=== PATIENT | female | born 1935 | race Caucasian/White ===

== ENCOUNTER → 2018-06-09 09:11 | Outpatient (CLI) | payer MEDICARE, OTHER, SELFPAY ==
[2018-06-09 10:21] LABS: INR 1.9 (0.9-1.3); Prothrombin Time 20.7 SECONDS (10.1-12.7)
== END ==
PROVIDERS: Visit Provider Pharmacist
DX: Z51.81 Encounter for therapeutic drug level monitoring (principal); Z79.01 Long term (current) use of anticoagulants; I48.91 Unspecified atrial fibrillation
CPT/HCPCS: 36415; 85610

== ENCOUNTER → 2018-06-16 09:10 | Outpatient (CLI) | payer MEDICARE, OTHER, SELFPAY ==
[2018-06-16 10:28] LABS: INR 2.6 (0.9-1.3); Prothrombin Time 28.7 SECONDS (10.1-12.7)
== END ==
PROVIDERS: Visit Provider Pharmacist
DX: Z51.81 Encounter for therapeutic drug level monitoring (principal); Z79.01 Long term (current) use of anticoagulants; I48.91 Unspecified atrial fibrillation
CPT/HCPCS: 36415; 85610

== ENCOUNTER → 2018-06-30 15:58 | Outpatient (CLI) | payer MEDICARE, OTHER, SELFPAY ==
[2018-06-30 16:28] LABS: INR 2.6 (0.9-1.3); Prothrombin Time 28.6 SECONDS (10.1-12.7)
== END ==
PROVIDERS: Visit Provider Pharmacist
DX: Z51.81 Encounter for therapeutic drug level monitoring (principal); Z79.01 Long term (current) use of anticoagulants; I48.91 Unspecified atrial fibrillation
CPT/HCPCS: 36415; 85610

== ENCOUNTER → 2018-07-10 08:25 | Outpatient (CLI) | payer MEDICARE, OTHER, SELFPAY ==
[2018-07-10 09:16] LABS: INR 3.5 (0.9-1.3); Prothrombin Time 41.6 SECONDS (10.1-12.7)
== END ==
PROVIDERS: Visit Provider Pharmacist
DX: I48.91 Unspecified atrial fibrillation (principal); Z51.81 Encounter for therapeutic drug level monitoring; Z79.01 Long term (current) use of anticoagulants
CPT/HCPCS: 36415; 85610

== ENCOUNTER → 2018-07-12 08:26 | Outpatient (CLI) | payer MEDICARE, OTHER, SELFPAY ==
[2018-07-12 09:16] LABS: INR 2.5 (0.9-1.3); Prothrombin Time 29.3 SECONDS (10.1-12.7)
== END ==
PROVIDERS: Visit Provider Pharmacist
DX: Z51.81 Encounter for therapeutic drug level monitoring (principal); Z79.01 Long term (current) use of anticoagulants; I48.91 Unspecified atrial fibrillation
CPT/HCPCS: 36415; 85610

== ENCOUNTER → 2018-07-21 08:24 | Outpatient (CLI) | payer MEDICARE, OTHER, SELFPAY ==
[2018-07-21 09:20] LABS: INR 2.2 (0.9-1.3); Prothrombin Time 26.1 SECONDS (10.1-12.7)
== END ==
PROVIDERS: Visit Provider Pharmacist
DX: Z51.81 Encounter for therapeutic drug level monitoring (principal); Z79.01 Long term (current) use of anticoagulants; I48.91 Unspecified atrial fibrillation
CPT/HCPCS: 36415; 85610

== ENCOUNTER → 2018-08-04 09:43 | Outpatient (CLI) | payer MEDICARE, OTHER, SELFPAY ==
[2018-08-04 11:01] LABS: Prothrombin Time 23.9 SECONDS (10.1-12.7)
== END ==
PROVIDERS: Visit Provider Pharmacist
DX: Z51.81 Encounter for therapeutic drug level monitoring (principal); Z79.01 Long term (current) use of anticoagulants; I48.91 Unspecified atrial fibrillation
CPT/HCPCS: 36415; 85610

== ENCOUNTER 2018-08-29 10:28 | Observation (INO) | payer MEDICARE, OTHER, SELFPAY ==
[2018-08-29] VITALS (14 sets, daily range): BP systolic 91–138; BP diastolic 46–69; PULSE 49–129; RESP 16–26; TEMP 36.7–37.1; O2SAT 94–100; BMI 29.1
--- NOTE | 2018-08-29 11:13 | ED_ITS ---
HPI - GI Bleed General Chief complaint: GI Bleed Stated complaint: blood in stool Time Seen by Provider: 08/29/18 10:58 Source: patient Mode of arrival: ambulatory Limitations: no limitations History of Present Illness HPI Narrative: Patient is an 83-year-old female who presents with rectal bleeding. She is on Coumadin for atrial fibrillation. She says that she had 1 episode of bright red blood per rectum this morning. She has not had any vomiting or hematemesis. No abdominal pain dizziness lightheadedness or shortness of breath. She is visiting from out of town. She had actually an INR here on 08/04/2018 it was 2.0. No prior history of GI bleeding. MD complaint: gross hematochezia (x1) Severity: mild Associated symptoms: denies other symptoms Related Data Home Medications Medication Instructions Recorded Confirmed atenolol 25 mg PO DAILY 08/29/18 08/29/18 cholecalciferol (vitamin D3) 1,000 unit PO QPM 08/29/18 08/29/18 [Vitamin D3] flecainide 50 mg PO BEDTIME 08/29/18 08/29/18 magnesium oxide 400 mg PO QPM 08/29/18 08/29/18 tamoxifen 2 tab PO QPM 08/29/18 08/29/18 warfarin 2.5 mg PO DIRECTED 08/29/18 08/29/18 warfarin 5 mg PO DIRECTED 08/29/18 08/29/18 Allergies Allergy/AdvReac Type Severity Reaction Status Date / Time No Known Drug Allergies Allergy Verified 08/29/18 10:45 Review of Systems Review of Systems GENERAL: Denies chills, fatigue, malaise, fever, sweats, travel HEENT: Denies sinus pain, ear pain, sore throat, difficulty swallowing, neck pain RESPIRATORY: Denies dyspnea, cough, wheezing, hemoptysis, sputum. CARDIOVASCULAR: Denies chest pain, palpitations, orthopnea, edema GASTROINTESTINAL: See HPI : Denies dysuria, frequency, incontinence, hematuria, urinary retention, flank pain. MUSCULOSKELETAL: Denies weakness, joint pain, or bony pain SKIN: No rash, no erythema, no pruritus NEUROLOGIC: Denies weakness, dizziness, headache, numbness, change in speech, confusion PSYCHIATRIC: No concerning psychosocial issues. 12 point review of systems is negative except for those stated above and HPI COUNTS INCLUDE 234 BEDS AT THE [facility] Medical History History of breast cancer (Acute) History of hysterectomy (Acute) Multiple lung nodules (Acute) Paroxysmal atrial fibrillation (Acute) Seasonal allergies (Acute) Surgical History History of appendectomy (Acute) History of cataract removal with insertion of prosthetic lens (Acute) History of cholecystectomy (Acute) History of lumpectomy of left breast (Acute) Family History Mother Heart disease Diabetes mellitus Father No problems noted. Brother No problems noted. Brother No problems noted. Sister No problems noted. Social History household members: family Smoking Status: Former smoker alcohol intake: never Family History Mother Heart disease Diabetes mellitus Father No problems noted. Brother No problems noted. Brother No problems noted. Sister No problems noted. Social History household members: family Smoking Status: Former smoker alcohol intake: never Exam Initial Vital Signs Initial Vital Signs: Vital Signs Pulse Rate 129 H 08/29/18 10:29 Respiratory Rate 16 08/29/18 10:29 Blood Pressure 138/69 08/29/18 10:29 Pulse Oximetry 100 08/29/18 10:29 GENERAL: Alert elderly female in no acute distress HEENT: Head atraumatic,EOMI, pupils reactive, CARDIOVASCULAR: Regular rate and rhythm without murmurs, rubs or gallops. RESPIRATORY: Breath sounds equal bilaterally, no wheezes rales or rhonchi. ABDOMEN: Soft, nontender. Normoactive bowel sounds all 4 quadrants. No guarding or rebound. RECTAL: Is grossly positive EXTREMITIES: Normal range of motion, no clubbing or edema. Neurovascularly intact NEUROLOGICAL: Alert and oriented x4.Normal gait and speech. Cranial nerves II through XII grossly intact. SKIN: Warm, dry, no laceration, no petechiae, no rashes or lesions. Course Orders Ordered: ED Orders 08/29/18 11:08 EKG-12 Lead Stat 08/29/18 11:35 Fresh Frozen Plasma Stat Type and Screen Stat 08/29/18 14:11 Education, smoking cessation ONGOING Acetaminophen (Tylenol) 650 mg PO Q6HR PRN PRN Reason: As Needed for Fever/Mild Pain Al Hydrox/Mg Hydrox/Simethicone (Maalox Plus) 30 ml PO Q6HR PRN PRN Reason: Dyspepsia Bisacodyl (Dulcolax) 10 mg [place] DAILY PRN PRN Reason: Constipation Calcium Carbonate (Tums) 1,000 mg PO Q4HR PRN PRN Reason: Dyspepsia Sodium Chloride (Normal Saline 0.9%) 1,000 mls @ 100 mls/hr IV CONT ROCAEL Last Admin: 08/29/18 15:18 Dose: 100 mls/hr Discontinued Medications Sodium Chloride (Normal Saline 0.9%) 1,000 mls @ 150 mls/hr IV CONT ROCAEL Last Infusion: 08/29/18 14:30 Dose: 150 mls/hr Admin: 08/29/18 11:34 Dose: 150 mls/hr Pantoprazole Sodium (Protonix) 40 mg IV NOW ONE Stop: 08/29/18 11:14 Last Admin: 08/29/18 11:34 Dose: 40 mg Phytonadione (Mephyton) 2.5 mg PO NOW ONE Stop: 08/29/18 13:29 Last Admin: 08/29/18 13:43 Dose: 2.5 mg Vital Signs - 8 hr 08/29/18 10:29 08/29/18 11:00 08/29/18 11:30 Temperature Pulse Rate 129 H 49 L 61 Respiratory Rate 16 26 H 23 Blood Pressure 138/69 Blood Pressure [Left Arm] 105/46 L 121/56 L Pulse Oximetry 100 97 96 08/29/18 11:41 08/29/18 12:00 08/29/18 12:30 Temperature Pulse Rate 59 L 57 L 50 L Respiratory Rate 16 17 21 Blood Pressure Blood Pressure [Left Arm] 121/56 L 91/63 121/63 Pulse Oximetry 96 95 97 08/29/18 13:00 08/29/18 13:30 08/29/18 14:40 Temperature 98.3 F Pulse Rate 49 L 60 58 L Respiratory Rate 21 20 18 Blood Pressure 129/67 Blood Pressure [Left Arm] 112/61 121/61 Pulse Oximetry 97 97 99 08/29/18 15:00 08/29/18 16:12 Temperature 98.2 F Pulse Rate 54 L Respiratory Rate 20 Blood Pressure 127/65 Blood Pressure [Left Arm] Pulse Oximetry 99 98 MDM - GI Bleed Lab Data Attestation: I reviewed the patient's lab results. Result diagrams: 08/29/18 Unknown 08/29/18 Unknown Lab Results 08/29/18 08/29/18 08/29/18 Range/Units 11:35 Unknown Unknown WBC 4.2 L (4.5-11.0) X10^3/uL RBC 3.55 L (4.0-5.2) X10^6/uL Hgb 11.0 L (12.0-16.0) g/dL Hct 32.2 L (36-46) % MCV 90.8 (80-100) fL MCH 30.9 (26-34) PG MCHC 34.0 (30-36) % RDW 15.8 H (11.6-14.8) % Plt Count 159 (150-400) X10^3/uL Neut % (Auto) 60.2 (50-75) % Lymph % (Auto) 22.5 L (25-40) % [place] % (Auto) 13.9 (3-14) % Eos % (Auto) 2.5 (2-4) % Baso % (Auto) 0.9 (0-2) % Neut # (Auto) 2500 (6738-3733) /uL Lymph # (Auto) 900 L (6042-8571) /uL [place] # (Auto) 600 (0-900) /uL Eos # (Auto) 100 (0-450) /uL Baso # (Auto) 0 (0-100) /uL PT 24.6 H (10.1-12.7) SECONDS INR 2.1 H (0.9-1.3) APTT 35 (26.4-36.2) SECONDS Sodium (137-145) mmol/L Potassium (3.4-5.1) mmol/L Chloride (98-107) mmol/L Carbon Dioxide (22-32) mmol/L BUN (7-17) mg/dL Creatinine (0.52-1.04) mg/dL Estimated GFR (>60) mL/min BUN/Creatinine Ratio (6-22) Glucose (80-110) mg/dL Calcium (8.4-10.2) mg/dL Total Bilirubin (0.2-1.3) mg/dL AST (14-36) IU/L ALT (9-52) IU/L Alkaline Phosphatase (38-126) U/L Total Protein (6.3-8.2) g/dL Albumin (3.5-5.0) g/dL Globulin (1.7-4.1) g/dL Albumin/Globulin Ratio (1.0-2.8) Blood Type O Negative Antibody Screen Positive Antibody Identification Anti-D 08/29/18 Range/Units Unknown WBC (4.5-11.0) X10^3/uL RBC (4.0-5.2) X10^6/uL Hgb (12.0-16.0) g/dL Hct (36-46) % MCV (80-100) fL MCH (26-34) PG MCHC (30-36) % RDW (11.6-14.8) % Plt Count (150-400) X10^3/uL Neut % (Auto) (50-75) % Lymph % (Auto) (25-40) % [place] % (Auto) (3-14) % Eos % (Auto) (2-4) % Baso % (Auto) (0-2) % Neut # (Auto) (2887-7567) /uL Lymph # (Auto) (0715-6861) /uL [place] # (Auto) (0-900) /uL Eos # (Auto) (0-450) /uL Baso # (Auto) (0-100) /uL PT (10.1-12.7) SECONDS INR (0.9-1.3) APTT (26.4-36.2) SECONDS Sodium 138 (137-145) mmol/L Potassium 4.5 (3.4-5.1) mmol/L Chloride 105 (98-107) mmol/L Carbon Dioxide 25 (22-32) mmol/L BUN 28 H (7-17) mg/dL Creatinine 0.80 (0.52-1.04) mg/dL Estimated GFR > 60.0 (>60) mL/min BUN/Creatinine Ratio 35.0 H (6-22) Glucose 102 (80-110) mg/dL Calcium 8.8 (8.4-10.2) mg/dL Total Bilirubin 0.6 (0.2-1.3) mg/dL AST 32 (14-36) IU/L ALT 20 (9-52) IU/L Alkaline Phosphatase 41 (38-126) U/L Total Protein 6.7 (6.3-8.2) g/dL Albumin 3.6 (3.5-5.0) g/dL Globulin 3.1 (1.7-4.1) g/dL Albumin/Globulin Ratio 1.2 (1.0-2.8) Blood Type Antibody Screen Antibody Identification ECG Data Attestation: I personally reviewed and interpreted this ECG as follows: Prior ECG tracings: not available for review Interpretation: Bradycardia rate 47, irregular there do appear to be some P- waves artifact noted MDM Narrative Medical decision making narrative: Patient is actively bleeding though she has not had any bowel movement in the ED. Her rectal exam was grossly positive. She is on Coumadin with INR 2.1. Will give FFP and vitamin K of 2.5. At this time patient is hemodynamically stable. Initial heart rate was 129 however as she has had a slower heart rates in the 60s more consistently. Dr. smiley agrees with observation Discharge Plan Departure Patient Disposition: Admitted as Observation Clinical Impression: Acute GI bleeding Discharge Date/Time: 08/29/18 14:57 Interventions: ED Discharge Assessment Last Done: 08/29/18 14:17 Admit Date/Time: 08/29/18 13:59 Admit Provider: Jessica Smiley
[2018-08-29] MEDS: PANTOPRAZOLE 40 MG VIAL IV (11:34)
[2018-08-29] MEDS: SODIUM CHLORIDE 0.9% 1,000 ML 150 ML IV (11:34)
--- NOTE | 2018-08-29 11:40 | PC.NURSE ---
by registered nursing professor erlin wood.
[2018-08-29 12:12] LABS: Add Manual Diff / Slide Review NO; Basophils Absolute Auto 0 /uL (0-100); Basophils Percent Auto 0.9 % (0-2); Eosinophils Absolute Auto 100 /uL (0-450); Eosinophils Percent Auto 2.5 % (2-4); Hematocrit 32.2 % (36-46); Lymphocytes Absolute Auto 900 /uL (1100-4500); Lymphocytes Percent Auto 22.5 % (25-40); Mean Corpuscular Hemoglobin 30.9 PG (26-34); Mean Corpuscular Volume 90.8 fL (80-100); Monocytes Absolute Auto 600 /uL (0-900); Monocytes Percent Auto 13.9 % (3-14); Neutrophils Absolute Auto 2500 /uL (1500-7000); Neutrophils Percent Auto 60.2 % (50-75); Platelet Count 159 X10^3/uL (150-400); Red Blood Cell Count 3.55 X10^6/uL (4.0-5.2); Red Cell Distribution Width 15.8 % (11.6-14.8); White Blood Cell Count 4.2 X10^3/uL (4.5-11.0)
[2018-08-29 12:29] LABS: Alanine Aminotransferase 20 IU/L (9-52); Albumin 3.6 g/dL (3.5-5.0); Albumin Globulin Ratio 1.2 (1.0-2.8); Alkaline Phosphatase 41 U/L (38-126); Aspartate Aminotransferase 32 IU/L (14-36); Bilirubin Total 0.6 mg/dL (0.2-1.3); Blood Urea Nitrogen 28 mg/dL (7-17); Calcium 8.8 mg/dL (8.4-10.2); Carbon Dioxide 25 mmol/L (22-32); Chloride 105 mmol/L (98-107); Estimated Glomerular Filt Rate > 60.0 mL/min (>60); Globulin 3.1 g/dL (1.7-4.1); Glucose 102 mg/dL (80-110); HEMOLYSIS < 15 (0-50); Potassium 4.5 mmol/L (3.4-5.1); Sodium 138 mmol/L (137-145); Total Protein 6.7 g/dL (6.3-8.2)
[2018-08-29 12:31] LABS: INR 2.1 (0.9-1.3); PTT Partial Thromboplastin Tim 35 SECONDS (26.4-36.2); Prothrombin Time 24.6 SECONDS (10.1-12.7)
[2018-08-29] MEDS: PHYTONADIONE (VIT K1) 5 MG TABLET 2.5 MG PO (13:43)
--- NOTE | 2018-08-29 14:38 | PC.NURSE ---
left message for security to relocate pts car due to admission to hospital.
--- NOTE | 2018-08-29 14:40 | PC.NURSE ---
called message to brigid, ffp is now ready per lab
[2018-08-29] MEDS: SODIUM CHLORIDE 0.9% 1,000 ML 100 ML IV ×2 (15:18→18:07)
--- NOTE | 2018-08-29 16:20 | PM.HP.1 ---
History of Present Illness Date Patient Seen: 08/29/18 Chief complaint: blood in stool Narrative: Megan Good is a 83-year-old female with a past medical history significant for left breast cancer status post lumpectomy on tamoxifen and paroxysmal atrial fibrillation on warfarin who presented for one episode of erasmo red blood in stool. The patient reports that she was in her usual state of health when she had a bowel movement this morning and saw erasmo blood. She reports that there was stool with mixed red blood in the toilet. She has no history of GI bleed. She is on chronic anticoagulation with warfarin. She is visiting the area from [place] for the last several months due to a in the family. She denies headache, lightheadedness or dizziness, fatigue, chest pain, shortness of breath, abdominal pain, nausea, vomiting, fever, chills, dysuria, or constipation. She has been stressed due to selling a family home and has had several days of diarrhea. She also notes intermittent sharp epigastric pain that lasts several seconds and is not associated timing or position. She has no other complaints. Patient History Medical History History of breast cancer (Acute) History of hysterectomy (Acute) Multiple lung nodules (Acute) Paroxysmal atrial fibrillation (Acute) Seasonal allergies (Acute) Surgical History History of appendectomy (Acute) History of cataract removal with insertion of prosthetic lens (Acute) History of cholecystectomy (Acute) History of lumpectomy of left breast (Acute) Family History Mother Heart disease Diabetes mellitus Father No problems noted. Brother No problems noted. Brother No problems noted. Sister No problems noted. Social History household members: family Smoking Status: Former smoker alcohol intake: never Family & Social History Family History Mother Heart disease Diabetes mellitus Father No problems noted. Brother No problems noted. Brother No problems noted. Sister No problems noted. Social History: household members family Prior Living Arrangements House The patient is from [place] and lives independently on her own. She is and was previously for 57 years. She has 4 children 3 sons and 1 daughter who are healthy. Safety & Behavioral: Feels Safe in Current Yes Environment Been Physically Hurt or No Threatened By a Person Suicidal Ideation Description None Suicide Plan Description No Plan Tobacco & Substance use: Smoking Status Former smoker, 1 PPD x 10 years. Quit 1967. alcohol intake never Substance Use Type does not use Meds Home Medications Medication Instructions Recorded Confirmed Type atenolol 25 mg PO DAILY 08/29/18 08/29/18 History cholecalciferol (vitamin D3) 1,000 unit PO QPM 08/29/18 08/29/18 History [Vitamin D3] flecainide 1 tab PO QPM 08/29/18 08/29/18 History magnesium oxide 400 mg PO QPM 08/29/18 08/29/18 History tamoxifen 10 mg PO QPM 08/29/18 08/29/18 History warfarin 2.5 mg PO MOTH 08/29/18 08/29/18 History warfarin 5 mg PO [id number] 08/29/18 08/29/18 History Allergies Allergy/AdvReac Type Severity Reaction Status Date / Time No Known Drug Allergies Allergy Verified 08/29/18 10:45 Review of Systems Review of Systems A 10 system comprehensive review of systems was conducted with the patient and found to be negative except as above in the History of Present Illness. Exam Vital Signs (past 8 hours): - 08/29/18 10:29 08/29/18 11:00 08/29/18 11:30 Temperature Pulse Rate 129 H 49 L 61 Respiratory Rate 16 26 H 23 Blood Pressure 138/69 Blood Pressure [Left Arm] 105/46 L 121/56 L Pulse Oximetry 100 97 96 08/29/18 11:41 08/29/18 12:00 08/29/18 12:30 Temperature Pulse Rate 59 L 57 L 50 L Respiratory Rate 16 17 21 Blood Pressure Blood Pressure [Left Arm] 121/56 L 91/63 121/63 Pulse Oximetry 96 95 97 08/29/18 13:00 08/29/18 13:30 08/29/18 14:40 Temperature 98.3 F Pulse Rate 49 L 60 58 L Respiratory Rate 21 20 18 Blood Pressure 129/67 Blood Pressure [Left Arm] 112/61 121/61 Pulse Oximetry 97 97 99 08/29/18 15:00 08/29/18 16:12 Temperature 98.2 F Pulse Rate 54 L Respiratory Rate 20 Blood Pressure 127/65 Blood Pressure [Left Arm] Pulse Oximetry 99 98 Oxygen Delivery Method Room Air Oxygen Flow Rate 0 Narrative Exam Narrative: General: Elderly female sitting in bed and in no acute distress, well-developed, well-nourished, appropriately interactive. HEENT: Normocephalic, atraumatic. External ears without defect. Pupils equal, round, and reactive to light. Anicteric sclerae, moist conjunctivae, and no lid lag. Oropharynx free of erythema and cobble stoning with moist mucosa. Neck: Supple with full range of motion. No jugular venous distension. No bruits. No lymphadenopathy or thyromegaly. Cardiovascular: Irregularly irregular without murmurs, rubs, or gallops appreciated. Pulmonary: Clear to auscultation bilaterally without crackles, wheezes, or rhonchi. Normal respiratory effort with no use of accessory muscles. Abdomen: Soft, bowel sounds present, nontender, nondistended. No hepatosplenomegaly or masses appreciated. Extremities: No clubbing or cyanosis. Mild bilateral edema to pretibial area. Skin: Normal temperature, turgor, and texture; no rash, ulcers, or subcutaneous nodules appreciated. Neurological: Cranial nerves grossly intact. Normal muscle strength, tone, and bulk. Reflexes, coordination, and sensory function within normal limits. No known gait impairment. Psychiatric: Normal mood and affect. Alert and oriented to person, place, and time. Objective Labs Result Diagrams: 08/29/18 Unknown 08/29/18 Unknown Labs: Laboratory Results - last 24 hr 08/29/18 08/29/18 08/29/18 11:35 Unknown Unknown WBC 4.2 L RBC 3.55 L Hgb 11.0 L Hct 32.2 L MCV 90.8 MCH 30.9 MCHC 34.0 RDW 15.8 H Plt Count 159 Neut % (Auto) 60.2 Lymph % (Auto) 22.5 L [place] % (Auto) 13.9 Eos % (Auto) 2.5 Baso % (Auto) 0.9 Neut # (Auto) 2500 Lymph # (Auto) 900 L [place] # (Auto) 600 Eos # (Auto) 100 Baso # (Auto) 0 PT 24.6 H INR 2.1 H APTT 35 Sodium Potassium Chloride Carbon Dioxide BUN Creatinine Estimated GFR BUN/Creatinine Ratio Glucose Calcium Total Bilirubin AST ALT Alkaline Phosphatase Total Protein Albumin Globulin Albumin/Globulin Ratio Blood Type O Negative Antibody Screen Positive Antibody Identification Anti-D 08/29/18 Unknown WBC RBC Hgb Hct MCV MCH MCHC RDW Plt Count Neut % (Auto) Lymph % (Auto) [place] % (Auto) Eos % (Auto) Baso % (Auto) Neut # (Auto) Lymph # (Auto) [place] # (Auto) Eos # (Auto) Baso # (Auto) PT INR APTT Sodium 138 Potassium 4.5 Chloride 105 Carbon Dioxide 25 BUN 28 H Creatinine 0.80 Estimated GFR > 60.0 BUN/Creatinine Ratio 35.0 H Glucose 102 Calcium 8.8 Total Bilirubin 0.6 AST 32 ALT 20 Alkaline Phosphatase 41 Total Protein 6.7 Albumin 3.6 Globulin 3.1 Albumin/Globulin Ratio 1.2 Blood Type Antibody Screen Antibody Identification Assessment & Plan Plan: Assessment/Plan Narrative: Megan Good is a 83-year-old female with a past medical history significant for left breast cancer status post lumpectomy on tamoxifen and paroxysmal atrial fibrillation on warfarin who presented for one episode of erasmo red blood in stool. 1. Acute lower GI bleed, present on admission. Active. -Patient presented with 1 episode of erasmo red blood in stool. No history of GI bleed. Last colonoscopy 10 years ago was normal. Patient has paroxysmal atrial fibrillation on chronic anticoagulation with warfarin. -Patient received 2.5 mg PO vitamin K in the ED. 2 units FFP has been ordered by ED physician and held as patient has no signs of erasmo bleeding currently and vital signs are stable. -Started IV fluids with NS at 100 mL/hr. -Ordered clear liquid diet. -Will monitor H&H every 6 hr. -If patient continues to have hematochezia will give FFP and contact surgery for possible colonoscopy or sigmoidoscopy. 2. Acute blood loss anemia, present on admission. Stable. -No history of anemia and secondary to GI bleed. -Will continue to monitor H&H as above. 3. Paroxysmal atrial fibrillation, present on admission. Stable. -Patient is on flecainide and requesting for medication to be brought in to confirm dosage to continue. -Hold warfarin for now. DVT prophylaxis: SCDs and therapeutic on warfarin. Patient is admitted under observation status with expected length of stay less than 2 midnights due to severity of presenting symptoms, risk of adverse event, and complexity of treatment plan. Quality VTE Deep Vein Thrombosis/Pulmonary Embolism Present on Admission: No
[2018-08-29 18:29] LABS: Hematocrit 32.2 % (36-46); Hemoglobin 10.7 g/dL (12.0-16.0)
[2018-08-30] MEDS: SODIUM CHLORIDE 0.9% 1,000 ML 100 ML IV (04:09)
[2018-08-30 04:45] VITALS: BP 126/69; PULSE 62; RESP 16; TEMP 36.8; O2SAT 97
[2018-08-30 07:30] VITALS: BP 122/56; PULSE 50; RESP 16; TEMP 36.7; O2SAT 98
[2018-08-30 07:38] LABS: INR 1.7 (0.9-1.3); Prothrombin Time 20.4 SECONDS (10.1-12.7)
[2018-08-30 07:39] LABS: Hematocrit 30.5 % (36-46); Hemoglobin 10.3 g/dL (12.0-16.0); Mean Corpuscular HGB Conc 33.8 % (30-36); Mean Corpuscular Volume 91.7 fL (80-100); Platelet Count 135 X10^3/uL (150-400); Red Blood Cell Count 3.33 X10^6/uL (4.0-5.2); Red Cell Distribution Width 15.9 % (11.6-14.8)
[2018-08-30 07:41] LABS: Add Manual Diff / Slide Review YES
[2018-08-30 07:58] LABS: Neutrophils Absolute Manual 1590 /uL (3000-5900); Ovalocytes 1+; Total Cells Counted 100
[2018-08-30 08:01] LABS: BUN Creatinine Ratio 27.1 (6-22); Blood Urea Nitrogen 19 mg/dL (7-17); Calcium 8.3 mg/dL (8.4-10.2); Carbon Dioxide 25 mmol/L (22-32); Chloride 108 mmol/L (98-107); Estimated Glomerular Filt Rate > 60.0 mL/min (>60); Glucose 86 mg/dL (80-110); HEMOLYSIS < 15 (0-50); Potassium 4.1 mmol/L (3.4-5.1); Sodium 139 mmol/L (137-145)
--- NOTE | 2018-08-30 08:53 | PM.DS.1 ---
History of Present Illness Date Patient Seen: 08/29/18 Chief complaint: blood in stool Narrative: Written by myself Dr. Palmer: Megan Good is a 83-year-old female with a past medical history significant for left breast cancer status post lumpectomy on tamoxifen and paroxysmal atrial fibrillation on warfarin who presented for one episode of erasmo red blood in stool. The patient reports that she was in her usual state of health when she had a bowel movement this morning and saw erasmo blood. She reports that there was stool with mixed red blood in the toilet. She has no history of GI bleed. She is on chronic anticoagulation with warfarin. She is visiting the area from [place] for the last several months due to a in the family. She denies headache, lightheadedness or dizziness, fatigue, chest pain, shortness of breath, abdominal pain, nausea, vomiting, fever, chills, dysuria, or constipation. She has been stressed due to selling a family home and has had several days of diarrhea. She also notes intermittent sharp epigastric pain that lasts several seconds and is not associated timing or position. She has no other complaints. Discharge Providers Date of admission: 08/29/18 13:59 Discharge provider: Jessica Palmer DO Discharge Date: 08/30/18 Summary Discharge Diagnosis: 1. Acute lower GI bleed, present on admission. Resolved. 2. Acute blood loss anemia, present on admission. Stable. 3. Paroxysmal atrial fibrillation, present on admission. Stable. Hospital Course: Megan Good is a 83-year-old female with a past medical history significant for left breast cancer status post lumpectomy on tamoxifen and paroxysmal atrial fibrillation on warfarin who presented for one episode of erasmo red blood in stool. 1. Acute lower GI bleed, present on admission. Resolved. -Likely diverticular bleed versus hemorrhoidal bleed versus AVM versus malignancy. -Patient presented with 1 episode of erasmo red blood in stool. No history of GI bleed. Last colonoscopy 10 years ago was reportedly normal. Patient has paroxysmal atrial fibrillation on chronic anticoagulation with warfarin. -Patient received 2.5 mg PO vitamin K in the ED. 2 units FFP was ordered by ED physician but held as patient has no signs of erasmo bleeding and vital signs are stable. -Given IV fluids with NS at 100 mL/hr. -Monitored H&H which has been stable. -If patient continues to have hematochezia will give FFP and contact surgery for possible colonoscopy or sigmoidoscopy. 2. Acute blood loss anemia, present on admission. Stable. -No history of anemia and secondary to GI bleed. -Will continue to monitor H&H as above. 3. Paroxysmal atrial fibrillation, present on admission. Stable. -Patient is on flecainide 50 mg daily at bedtime. Rate has been controlled throughout hospitalization. -Stopped warfarin. Will have the patient follow up with her primary care provider in [place] at the beginning of next week to discuss restarting warfarin. Status at Discharge Functional status at discharge: independent ambulation Overall status at discharge: patient is back to baseline Exam Vital Signs (past 8 hours): - 08/30/18 04:45 08/30/18 07:30 Temperature 98.2 F 98.1 F Pulse Rate 62 50 L Respiratory Rate 16 16 Blood Pressure 126/69 122/56 L Pulse Oximetry 97 98 Oxygen Delivery Method Room Air Oxygen Flow Rate 0 Narrative Exam Narrative: General: Elderly female sitting in bed and in no acute distress, well-developed, well-nourished, appropriately interactive. HEENT: Normocephalic, atraumatic. External ears without defect. Pupils equal, round, and reactive to light. Anicteric sclerae, moist conjunctivae, and no lid lag. Neck: Supple with full range of motion. No jugular venous distension. No bruits. No lymphadenopathy or thyromegaly. Cardiovascular: Irregularly irregular without murmurs, rubs, or gallops appreciated. Pulmonary: Clear to auscultation bilaterally without crackles, wheezes, or rhonchi. Normal respiratory effort with no use of accessory muscles. Abdomen: Soft, bowel sounds present, nontender, nondistended. No hepatosplenomegaly or masses appreciated. Extremities: No clubbing or cyanosis. Mild bilateral edema to pretibial area. Skin: Normal temperature, turgor, and texture; no rash, ulcers, or subcutaneous nodules appreciated. Neurological: Cranial nerves grossly intact. Psychiatric: Normal mood and affect. Alert and oriented to person, place, and time. Objective Labs Result Diagrams: 08/30/18 06:52 08/30/18 06:52 Labs: Laboratory Results - last 24 hr 08/29/18 08/29/18 08/29/18 11:35 18:14 Unknown WBC 4.2 L RBC 3.55 L Hgb 10.7 L 11.0 L Hct 32.2 L 32.2 L MCV 90.8 MCH 30.9 MCHC 34.0 RDW 15.8 H Plt Count 159 Neut % (Auto) 60.2 Lymph % (Auto) 22.5 L [place] % (Auto) 13.9 Eos % (Auto) 2.5 Baso % (Auto) 0.9 Neut # (Auto) 2500 Lymph # (Auto) 900 L [place] # (Auto) 600 Eos # (Auto) 100 Baso # (Auto) 0 Total Counted Seg Neutrophils % Lymphocytes % (Manual) Atypical Lymphs % Monocytes % (Manual) Eosinophils % (Manual) Neutrophils # (Manual) RBC Morphology Ovalocytes PT INR APTT Sodium Potassium Chloride Carbon Dioxide BUN Creatinine Estimated GFR BUN/Creatinine Ratio Glucose Calcium Total Bilirubin AST ALT Alkaline Phosphatase Total Protein Albumin Globulin Albumin/Globulin Ratio Blood Type O Negative Antibody Screen Positive Antibody Identification Anti-D 08/29/18 08/29/18 08/30/18 Unknown Unknown 06:52 WBC 3.0 L RBC 3.33 L Hgb 10.3 L Hct 30.5 L MCV 91.7 MCH 31.0 MCHC 33.8 RDW 15.9 H Plt Count 135 L Neut % (Auto) Not Reportable Lymph % (Auto) Not Reportable [place] % (Auto) Not Reportable Eos % (Auto) Not Reportable Baso % (Auto) Not Reportable Neut # (Auto) Lymph # (Auto) Not Reportable [place] # (Auto) Not Reportable Eos # (Auto) Baso # (Auto) Not Reportable Total Counted 100 Seg Neutrophils % 53.0 Lymphocytes % (Manual) 22.0 L Atypical Lymphs % 9.0 H Monocytes % (Manual) 13.0 H Eosinophils % (Manual) 3.0 Neutrophils # (Manual) 1590 L RBC Morphology Not Reportable Ovalocytes 1+ H PT 24.6 H INR 2.1 H APTT 35 Sodium 138 Potassium 4.5 Chloride 105 Carbon Dioxide 25 BUN 28 H Creatinine 0.80 Estimated GFR > 60.0 BUN/Creatinine Ratio 35.0 H Glucose 102 Calcium 8.8 Total Bilirubin 0.6 AST 32 ALT 20 Alkaline Phosphatase 41 Total Protein 6.7 Albumin 3.6 Globulin 3.1 Albumin/Globulin Ratio 1.2 Blood Type Antibody Screen Antibody Identification 08/30/18 08/30/18 06:52 06:52 WBC RBC Hgb Hct MCV MCH MCHC RDW Plt Count Neut % (Auto) Lymph % (Auto) [place] % (Auto) Eos % (Auto) Baso % (Auto) Neut # (Auto) Lymph # (Auto) [place] # (Auto) Eos # (Auto) Baso # (Auto) Total Counted Seg Neutrophils % Lymphocytes % (Manual) Atypical Lymphs % Monocytes % (Manual) Eosinophils % (Manual) Neutrophils # (Manual) RBC Morphology Ovalocytes PT 20.4 H INR 1.7 H APTT Sodium 139 Potassium 4.1 Chloride 108 H Carbon Dioxide 25 BUN 19 H Creatinine 0.70 Estimated GFR > 60.0 BUN/Creatinine Ratio 27.1 H Glucose 86 Calcium 8.3 L Total Bilirubin AST ALT Alkaline Phosphatase Total Protein Albumin Globulin Albumin/Globulin Ratio Blood Type Antibody Screen Antibody Identification Discharge Plan Discharge Plan Patient Disposition: Home Discharge comment: You are being discharged home. Do not restart your warfarin. Please follow-up with your primary care provider , Dr. Mingo Feliciano, at the beginning of next week to discuss your hospitalization and restarting warfarin. You also should discuss whether not to pursue a colonoscopy. If you have significant rectal bleeding or become short of breath, lightheaded or dizzy, faint, increasingly fatigued or weak, stroke like symptoms please go to the emergency department nearest you immediately. Discharge Med Rec/Prescriptions Prescriptions: Continue atenolol 25 mg Tablet 25 mg PO DAILY RF: 0 tamoxifen 10 mg Tablet 2 tab PO QPM RF: 0 cholecalciferol (vitamin D3) [Vitamin D3] 1,000 unit Capsule 1,000 unit PO QPM RF: 0 magnesium oxide 400 mg magnesium Tablet 400 mg PO QPM RF: 0 flecainide 50 mg Tablet 50 mg PO BEDTIME RF: 0 Discontinued warfarin 5 mg Tablet 5 mg PO DIRECTED RF: 0 warfarin 2.5 mg Tablet 2.5 mg PO DIRECTED RF: 0 Provider Discharge Instructions Diet: Diet as Tolerated, Low-fat, Low-sodium and Low-cholesterol Activity: Activity as tolerated Visit Report/Discharge Packet Instructions: Gastrointestinal Bleeding Discharge Data Attending Provider: Jessica Palmer Admit Date/Time: 08/29/18 13:59 Quality VTE Deep Vein Thrombosis/Pulmonary Embolism Present on Admission: No
[2018-08-30 09:50] VITALS: O2SAT 97
--- NOTE | 2018-08-30 10:43 | CM.IDA ---
Met w/pt and her niece at bedside. Pt eager to return home to [place] before the pass gets too snowy and icy. Pt has ne concerns about leaving today and understands Dr Palmer's DC instructions. Pt is indp at her baseline and will be driving herself back to [place] as soon as she can, close outpt f/u is expected. No barriers to DC home today. JW
--- NOTE | 2018-08-30 11:40 | PC.NURSE ---
Day Shift- Pt had moderate BM today, [facility], Dr. Palmer aware. BM was soft, brown with small spots of maroon color. Pt Asymptomatic, wants to go home today. Up indep/SBA. Reviewed written and discharge information from discharge summary packet. Pt has already scheduled appointment with her PCP Dr. Erasmo Feliciano in [place] on Tuesday 09/05 at 0930. Pt left unit via wheelchair with [facility] at 1140 in no distress. Wallet was retrieved from unit safe and all contents verified with pt.
== END 2018-08-30 11:40 | disposition home or self-care (01) ==
LOC: ED 13:31 → AC 13:59
PROVIDERS: Admitting Provider Internal Medicine; Emergency Provider Emergency Medicine; Visit Provider Internal Medicine
DX: K92.2 Gastrointestinal hemorrhage, unspecified (principal); D62 Acute posthemorrhagic anemia; I48.0 Paroxysmal atrial fibrillation; K92.1 Melena; Z79.01 Long term (current) use of anticoagulants; Z87.891 Personal history of nicotine dependence; Z79.810 Long term (current) use of selective estrogen receptor modulators (SERMs)
CPT/HCPCS: 36415; 36591; 80048; 80053; 85014; 85018; 85025; 85610; 85730; 86850; 86870; 86900; 86901; 86927; 93005; 96361; 96374; 99284; 99285; G0378; C9113